=== PATIENT | male | born 1975 | race Caucasian/White ===

== ENCOUNTER 2022-09-01 07:27 | Day surgery (SDC) | payer BC ==
[2022-09-01] MEDS ORDERED: Midazolam 1 MG/ML 2 ML SDV IV ONE (07:28)
[2022-09-01] MEDS ORDERED: Propofol 200 MG/20 ML SDV IV ONE (07:28)
[2022-09-01] MEDS ORDERED: Ketamine 500 mg/10 ML MDV IV ONE (07:28)
[2022-09-01] MEDS ORDERED: Lidocaine 2% 5 ML SDV IV ONE (07:28)
[2022-09-01] MEDS ORDERED: Lactated Ringers 1,000 ML IV SCH (07:30)
[2022-09-01] MEDS ORDERED: Sodium Chloride 0.9% 10 ML Syringe FLUSH PRN (07:30)
[2022-09-01 11:12] VITALS: BP 147/89; PULSE 75
== END 2022-09-01 10:05 | disposition home or self-care (01) ==
LOC: FB.SDS 07:27
PROVIDERS: ATTEND Surgery
DX: K21.00 Gastro-esophageal reflux disease with esophagitis, without bleeding (principal); K31.7 Polyp of stomach and duodenum; Z88.0 Allergy status to penicillin; Z88.6 Allergy status to analgesic agent; Z88.1 Allergy status to other antibiotic agents; Z79.899 Other long term (current) drug therapy; Z87.19 Personal history of other diseases of the digestive system
CPT/HCPCS: 00731-QZ; 88305; J2250; J2704; J3490; J7120